=== PATIENT | male | born 1985 | race Caucasian/White ===

== ENCOUNTER 2023-06-01 14:40 | Emergency (ER) | payer BC, SELFPAY ==
[2023-06-01 14:55] VITALS: BP 115/67; PULSE 97; RESP 20; TEMP 37.2; O2SAT 99
--- NOTE | 2023-06-01 15:21 | ED.URI ---
HPI - URI/Sore Throat General Chief Complaint: Upper Respiratory Infection Stated Complaint: sore throat,muscle aches Source: patient Mode of arrival: ambulatory Limitations: no limitations History of Present Illness HPI Narrative: 37-year-old male presents to [facility] with complaints of low-grade fevers, body aches and cough since last night. Patient reports that his father tested positive for COVID today. Patient denies recent travel. Patient has been taking [id number] Advil with minimal relief. Patient denies nausea, vomiting, diarrhea, shortness of breath or wheezing. Patient is requesting COVID test today. MD elicited complaint: fever and cough Onset (ago): hour(s) (12) Severity: mild Able to tolerate fluids by mouth: Yes Exacerbating factors: nothing Relieving factors: nothing Context: sick contacts Treatments prior to arrival: ibuprofen Related Data Home Medications Medication Instructions Recorded Confirmed No Home Medications 06/01/23 06/01/23 Allergies Allergy/AdvReac Type Severity Reaction Status Date / Time No Known Allergies Allergy Verified 06/01/23 15:08 Review of Systems Constitutional: Constitutional: Denies chills, Denies fatigue, Reports fever(s) and Denies weakness ENT: Denies vertigo, Denies dizziness, Denies nasal congestion and Denies sore throat Respiratory: Respiratory: Reports cough, Denies dyspnea and Denies wheezing Gastrointestinal: Gastrointestinal: Denies diarrhea, Denies nausea and Denies vomiting Neurologic: Denies dizziness, Denies syncope and Denies headache(s) PMFSH Comments At time of signature, I agree with nursing past medical, surgical, social and family history. There is no relevant family history pertinent to the presenting complaint. Exam Const: General: healthy appearing and no acute distress Nutritional Appearance: well nourished Orientation/consciousness: patient oriented x3 Limitations: no limitations HENMT: Head: normal to inspection Ears: external ears normal, TM's normal bilaterally and EAC's normal Face/Nose/Sinus: Normal external nose present Teeth and gingiva: dentition normal Throat: posterior oropharynx normal and uvula midline Eyes: Conjunctivae: conjunctivae normal Resp: Effort & Inspection: normal respiratory effort and not labored Auscultation: clear to auscultation bilaterally, no crackles, no rales, no rhonchi and no wheezes Cardio: Rate: regular rate Rhythm: regular rhythm Heart sounds: no murmurs Skin: General skin exam: normal color Rashes: no rashes Neuro: General: patient oriented x3 Speech: normal speech Psych: Affect: normal affect Attitude: cooperative Course Course Level of Care: Express Care Visit Vital Signs Vital signs: Vital Signs Temperature 37.2 C 06/01/23 14:55 Pulse Rate 97 06/01/23 14:55 Respiratory Rate 20 06/01/23 14:55 Blood Pressure 115/67 06/01/23 14:55 Pulse Oximetry 99 06/01/23 14:55 Oxygen Delivery Room Air 06/01/23 14:55 Temperature 37.2 C 06/01/23 14:55 Pulse Rate 97 06/01/23 14:55 Respiratory Rate 20 06/01/23 14:55 Blood Pressure 115/67 06/01/23 14:55 Pulse Oximetry 99 06/01/23 14:55 Oxygen Delivery Room Air 06/01/23 14:55 MDM - URI/Sore Throat MDM Narrative Medical decision making narrative: Informed patient he is to self quarantine due to CDC recommendations as he is currently symptomatic with recent COVID exposure. Work excuse provided for patient. Instructed patient to a respond himself in 24-48 hours to assess for COVID. Informed patient to proceed to the emergency room if symptoms worsen Differential Diagnosis Differential diagnosis: Likely croup, otitis media and sinusitis Lab Data Labs: Negative rapid COVID Critical Care Time Critical Care Time Critical Care Time: No Discharge Plan Discharge Clinical Impression: Viral infection Patient Disposition: Home, Self-Care Condition: Stable Instructions:
== END 2023-06-01 15:30 | disposition home or self-care (01) ==
PROVIDERS: Emergency Provider Nurse Practitioner Family
DX: B34.9 Viral infection, unspecified (principal); Z20.822 Contact with and (suspected) exposure to COVID-19
CPT/HCPCS: 87426; 99213; C9803; G0463